=== PATIENT | female | born 1995 | race Caucasian/White ===

== ENCOUNTER 2016-03-12 14:33 | Emergency (ER) | payer OTHER, BC ==
[~2016-03-12] VITALS: Ht 170.2 cm; Wt 82.9 kg
[2016-03-12 14:37] VITALS: TEMP 36.9; Ht 170.2 cm; Wt 82.9 kg
[2016-03-12] MEDS ORDERED: SODIUM CHLORIDE 0.9% 1000ML 1,000 ML IV STA (15:39)
[2016-03-12] MEDS ORDERED: BCPILLS PO (16:02)
[2016-03-12] MEDS ORDERED: ONDANSETRON 8 MG/54 ML D5W IV STA (16:09)
[2016-03-12] MEDS ORDERED: ZIPR20CA PO (16:24)
[2016-03-12] MEDS ORDERED: APRE1TAB3 PO (16:24)
[2016-03-12] MEDS ORDERED: LISD40CA PO (16:24)
[2016-03-12] MEDS ORDERED: BUPR-79 PO (16:24)
[2016-03-12] MEDS ORDERED: LEVO1TAB19 PO (16:24)
[2016-03-12] MEDS ORDERED: AMT10 PO (16:24)
[2016-03-12] MEDS ORDERED: HYDR1CAP85 PO (16:24)
[2016-03-12] MEDS ORDERED: CETI10TA84 PO (16:24)
[2016-03-12] MEDS ORDERED: FLUT0.15 NAE (16:24)
[2016-03-12] MEDS ORDERED: ZNTT/150 PO (16:24)
[2016-03-12] MEDS ORDERED: CYCL10TA6 PO (16:24)
[2016-03-12] MEDS ORDERED: CLOB-85 TOP (16:24)
[2016-03-12] MEDS ORDERED: ESOM20CA PO (16:24)
[2016-03-12 16:33] LABS: BASO % 0.2 %; BASO ABS # 0.02 K/uL (0-0.2); COMPLETE YES; EOS % 0.1 %; HEMATOCRIT 40.7 % (37-47); IG% 0.1 %; LYMPH % 18.6 %; LYMPH ABS # 1.74 K/uL (1.2-3.4); MEAN CELL VOLUME 88.7 fL (80-100); MEAN CORPUSCULAR HEMOGLOBIN 30.9 pg (25-34); MEAN CORPUSCULAR HGB CONC 34.9 g/dl (32-36); MEAN PLATELET VOLUME 9.5 fL (7.4-10.4); MONO % 4.7 %; NEUT % 76.3 %; PLATELET COUNT 317 K/uL (130-400); RED BLOOD COUNT 4.59 M/uL (4.2-5.4); WHITE BLOOD COUNT 9.37 K/uL (4.8-10.8)
[2016-03-12 16:49] LABS: URINE APPEARANCE CLEAR (CLEAR); URINE BILIRUBIN NEG (NEG); URINE COLOR YELLOW; URINE EPITHELIAL CELL AUTO >30 /lpf (0-5); URINE NITRITE POS (NEG); URINE PH 6.5 (4.5-7.5); URINE SPECIFIC GRAVITY 1.026 (1.000-1.030); UROBILINOGEN NEG (NEG); ZZUR CULT IF INDIC CLEAN CATCH YES
[2016-03-12 16:53] LABS: MANUAL MICROSCOPIC REQUIRED? NO; REVIEW REQ? NO
[2016-03-12 17:00] LABS: BUN/CREATININE RATIO 12.8 (10-20); CALCIUM 9.4 mg/dl (8.5-10.1); CREATININE 0.81 mg/dl (0.60-1.20); POTASSIUM 3.8 mmol/L (3.5-5.1)
--- NOTE | 2016-03-12 17:06 | DIAGNOSTIC IMAGING REPORT ---
Right upper quadrant ultrasound GALLBLADDER-ABD LIMITED CLINICAL HISTORY: upper abd pain, vomiting. Pain TECHNIQUE: Ultrasound COMPARISON STUDY: None FINDINGS: Normal liver. Gallbladder is normal. Common bile duct 2 mm. Normal pancreas and right kidney IMPRESSION: Normal study Electronically signed by: Daryn Weber M.D. 03/12/2016 5:04 PM Dictated Date/Time: 03/12/2016 5:02 PM
[2016-03-12 17:13] LABS: BENZODIAZEPINE, URINE NEG (NEG); COCAINE,URINE NEG (NEG); PHENCYCLIDINE, URINE NEG (NEG)
[2016-03-12 19:43] VITALS: BP 119/73; PULSE 90; O2SAT 98
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
== END 2016-03-12 19:45 | disposition home or self-care (01) ==
LOC: C.EDB 14:36
DX: R11.2 Nausea with vomiting, unspecified (principal); R10.9 Unspecified abdominal pain; Z79.3 Long term (current) use of hormonal contraceptives; Z79.899 Other long term (current) drug therapy

== ENCOUNTER 2017-04-08 17:06 | Emergency (ER) | payer OTHER, BC ==
[~2017-04-08] VITALS: Ht 170.2 cm; Wt 80.5 kg
[~2017-04-08 17:06] MED LIST: AMT10 PO; APRE1TAB3 PO; BCPILLS PO; BUPR-79 PO; CETI10TA84 PO; CLOB-85 TOP; CYCL10TA6 PO; ESOM20CA PO; FLUT0.15 NAE; HYDR1CAP85 PO; LISD40CA PO; ONDA4TAB10 SL; RANI150T85 PO; ZIPR20CA PO
[2017-04-08 17:10] VITALS: TEMP 36.9; Ht 170.2 cm; Wt 80.5 kg
[2017-04-08] MEDS ORDERED: GI COCKTAIL PO STA (17:28)
[2017-04-08 17:37] LABS: BASO % 0.1 %; BASO ABS # 0.01 K/uL (0-0.2); EOS % 1.3 %; EOS ABS # 0.09 K/uL (0-0.5); HEMATOCRIT 40.1 % (37-47); HEMOGLOBIN 13.9 g/dL (12.0-16.0); IG# 0.01 K/uL (0.00-0.02); LYMPH % 34.3 %; LYMPH ABS # 2.32 K/uL (1.2-3.4); MEAN CELL VOLUME 87.9 fL (80-100); MEAN CORPUSCULAR HEMOGLOBIN 30.5 pg (25-34); MEAN CORPUSCULAR HGB CONC 34.7 g/dl (32-36); MEAN PLATELET VOLUME 9.2 fL (7.4-10.4); MONO % 6.8 %; MONO ABS # 0.46 K/uL (0.11-0.59); NEUT % 57.4 %; NEUT ABS # 3.87 K/uL (1.4-6.5); PLATELET COUNT 297 K/uL (130-400); RED CELL DISTRIBUTION WIDTH CV 12.4 % (11.5-14.5); WHITE BLOOD COUNT 6.76 K/uL (4.8-10.8)
[2017-04-08] MEDS ORDERED: ALUMINUM/MAGNESIUM SUSP 30 ML UDC ONE (17:39)
[2017-04-08] MEDS ORDERED: LIDOCAINE HCL 2% VISC SOLN 20 ML UDC ONE (17:39)
[2017-04-08 17:51] LABS: ALBUMIN 3.8 gm/dl (3.4-5.0); ALT/SGPT 27 U/L (12-78); AST/SGOT 12 U/L (15-37); BLOOD UREA NITROGEN 10 mg/dl (7-18); CALCIUM 8.9 mg/dl (8.5-10.1); CARBON DIOXIDE 26 mmol/L (21-32); CREATININE 0.92 mg/dl (0.60-1.20); GLUCOSE 101 mg/dl (70-99); LIPASE 166 U/L (73-393); POTASSIUM 3.5 mmol/L (3.5-5.1); SODIUM 138 mmol/L (136-145)
[2017-04-08 17:56] LABS: ALKALINE PHOSPHATASE 83 U/L (45-117); CKMB 0.7 ng/ml (0.5-3.6)
--- NOTE | 2017-04-08 17:56 | DIAGNOSTIC IMAGING REPORT ---
CHEST ONE VIEW PORTABLE CLINICAL HISTORY: 21 years-old Female presenting with CP. TECHNIQUE: Portable upright AP view of the chest was obtained. COMPARISON: None. FINDINGS: Cardiomediastinal silhouette normal. Lungs and pleural spaces clear. Osseous structures normal. Upper abdomen normal. IMPRESSION: 1. No acute cardiopulmonary disease. Electronically signed by: Ned Gomez M.D. 04/08/2017 5:55 PM Dictated Date/Time: 04/08/2017 5:55 PM
--- NOTE | 2017-04-08 19:00 | EMERGENCY ROOM VISIT NOTE ---
History First contact with patient: 17:18 Chief Complaint: CHEST PAIN Stated Complaint: TIGHT CHEST PAIN, TINGLING, TIGHTNESS IN NECK Nursing Triage Summary: at 1440 while on cough developed midsternal chest pain lasting mins then went away returned again and dissipated no pain on arrival to triage pt did have dizziness with pain hx costcocondroitis History of Present Illness The patient is a 21 year old female who presents to the Emergency Room with complaints of intermittent, pressure-like chest pain that occurred at approximately 1:30 PM this afternoon. The patient was sitting on the couch when it occurred. It was worse with movement. She denies any difficulty breathing. No pain with deep inspiration. This episode lasted approximately 20 minutes. A similar episode happened 2 hours later. She is currently symptom free. She denies any cough or fever. The patient reports a history of costochondritis. She denies any cardiac history. No recent long travel. She does not smoke. She does take control pills. Review of Systems 10 system review performed and negative unless noted in HPI or below Past Medical/Surgical History Medical Problems: (1) Impetigo Psoriatic arthritis Depression Bipolar disorder Family History No reported cardiac disease Social History Smoking Status: Never Smoker Marital Status: single Occupation Status: employed Current/Historical Medications Scheduled Amitriptyline HCl (Amitriptyline HCl), 10 MG PO HS Apremilast (Otezla), 30 MG PO HS Control Pills ( Control Pills), 1 TAB PO DAILY Bupropion (Wellbutrin Sr), 150 MG PO HS Cetirizine (Zyrtec), 10 MG PO HS Clobetasol Propionate Emulsion (Clobetasol Propionate), 1 SPRAY TOP UD Esomeprazole Magnesium (Nexium), 20 MG PO DAILY Fluticasone Propionate (Nasal) (Flonase Allergy Relief), 2 SPRAYS CECILLE DAILY Ondasetron Odt (Zofran Odt), 4 MG SL Q6H Ranitidine (Zantac), 150 MG PO HS Ziprasidone Hcl (Geodon), 20 MG PO QPM Scheduled PRN Cyclobenzaprine Hcl (Flexeril), 10 MG PO HS PRN for Muscle Spasms Hydroxyzine Pamoate (Vistaril), 25 MG PO HS PRN for Anxiety Lisdexamfetamine Dimesylate (Vyvanse), 40 MG PO DAILY PRN for ADHD Physical Exam Vital Signs Date Time Temp Pulse Resp B/P (MAP) Pulse Ox O2 Delivery O2 Flow Rate FiO2 04/08/17 19:28 78 18 98/59 100 Room Air 04/08/17 17:59 75 18 116/66 99 Room Air 04/08/17 17:31 80 04/08/17 17:10 36.9 87 20 134/87 96 Room Air Physical Exam VITALS: Vitals are noted on the nurse's note and reviewed by myself. Vital signs stable. GENERAL: 21-year-old female, in no acute distress, nondiaphoretic, well- developed well-nourished. SKIN: The skin was without rashes, erythema, edema, or bruising. HEAD: Normocephalic atraumatic. NECK: No JVD. HEART: Regular rate and rhythm without murmurs gallops or rubs. THORAX: Mild tenderness to palpation over the sternum LUNGS: Clear to auscultation bilaterally without wheezes, rales or rhonchi. No accessory muscle use. ABDOMEN: Positive bowel sounds x 4.Soft, nontender, without organomegaly. No guarding or rebound tenderness. MUSCULOSKELETAL: No muscle atrophy, erythema, or edema noted. Strength 5/5 throughout. NEURO: Patient was alert and oriented to person place and time. Normal sensation to touch. No focal neurological deficits. Medical Decision & Procedures ER Provider Diagnostic Interpretation: Chest x-ray IMPRESSION: 1. No acute cardiopulmonary disease. Electronically signed by: Ned Gomez M.D. 04/08/2017 5:55 PM Dictated Date/Time: 04/08/2017 5:55 PM The status of this report is Signed. Draft = Not yet reviewed or approved by Radiologist. Signed = Reviewed and approved by Radiologist. Laboratory Results 04/08/17 17:22 Red Blood Count 4.56, Mean Corpuscular Volume 87.9, Mean Corpuscular Hemoglobin 30.5, Mean Corpuscular Hemoglobin Concent 34.7, Mean Platelet Volume 9.2, Neutrophils (%) (Auto) 57.4, Lymphocytes (%) (Auto) 34.3, Monocytes (%) (Auto) 6.8, Eosinophils (%) (Auto) 1.3, Basophils (%) (Auto) 0.1, Neutrophils # (Auto) 3.87, Lymphocytes # (Auto) 2.32, Monocytes # (Auto) 0.46, Eosinophils # (Auto) 0.09, Basophils # (Auto) 0.01 04/08/17 17:22 Test 04/08/17 17:22 04/08/17 18:24 White Blood Count 6.76 K/uL (4.8-10.8) Red Blood Count 4.56 M/uL (4.2-5.4) Hemoglobin 13.9 g/dL (12.0-16.0) Hematocrit 40.1 % (37-47) Mean Corpuscular Volume 87.9 fL (80-100) Mean Corpuscular Hemoglobin 30.5 pg (25-34) Mean Corpuscular Hemoglobin Concent 34.7 g/dl (32-36) Platelet Count 297 K/uL (130-400) Mean Platelet Volume 9.2 fL (7.4-10.4) Neutrophils (%) (Auto) 57.4 % Lymphocytes (%) (Auto) 34.3 % Monocytes (%) (Auto) 6.8 % Eosinophils (%) (Auto) 1.3 % Basophils (%) (Auto) 0.1 % Neutrophils # (Auto) 3.87 K/uL (1.4-6.5) Lymphocytes # (Auto) 2.32 K/uL (1.2-3.4) Monocytes # (Auto) 0.46 K/uL (0.11-0.59) Eosinophils # (Auto) 0.09 K/uL (0-0.5) Basophils # (Auto) 0.01 K/uL (0-0.2) RDW Standard Deviation 40.0 fL (36.4-46.3) RDW Coefficient of Variation 12.4 % (11.5-14.5) Immature Granulocyte % (Auto) 0.1 % Immature Granulocyte # (Auto) 0.01 K/uL (0.00-0.02) Anion Gap 7.0 mmol/L (3-11) Est Creatinine Clear Calc Drug Dose 104.7 ml/min Estimated GFR () 102.4 Estimated GFR (Non- 88.4 BUN/Creatinine Ratio 10.6 (10-20) Calcium Level 8.9 mg/dl (8.5-10.1) Total Bilirubin 0.4 mg/dl (0.2-1) Aspartate Amino Transf (AST/SGOT) 12 U/L (15-37) Alanine Aminotransferase (ALT/SGPT) 27 U/L (12-78) Alkaline Phosphatase 83 U/L (45-117) Total Creatine Kinase 128 U/L (26-192) Creatine Kinase MB 0.7 ng/ml (0.5-3.6) Creatine Kinase MB Ratio 0.5 (0-3.0) Troponin I < 0.015 ng/ml (0-0.045) Total Protein 8.0 gm/dl (6.4-8.2) Albumin 3.8 gm/dl (3.4-5.0) Globulin 4.2 gm/dl (2.5-4.0) Albumin/Globulin Ratio 0.9 (0.9-2) Lipase 166 U/L (73-393) Urine Test NEG (NEG) Medications Administered Medications (Trade) Dose Ordered Sig/Anika Route Start Time Stop Time Status Last Admin Dose Admin Miscellaneous Medication (Gi Cocktail) 24 ml ONE STAT PO 04/08/17 17:28 04/08/17 17:31 DC 04/08/17 17:41 24 ML Al Hydroxide/Mg Hydroxide (Maalox Susp) 30 ml STK-MED ONCE .ROUTE 04/08/17 17:39 04/08/17 17:40 DC 04/08/17 17:42 30 ML Lidocaine HCl (Viscous Lidocaine 2% Soln) 20 ml STK-MED ONCE .ROUTE 04/08/17 17:39 04/08/17 17:40 DC 04/08/17 17:42 20 ML ECG Per My Interpretation Indication: chest pain Rate (beats per minute): 86 Rhythm: normal sinus ED Course Patient was seen and examined Vital signs including blood pressure were reviewed medications list was verified with patient Labs were obtained, and a saline lock was established An EKG was performed and reviewed by myself. The patient was put on a monitor. She was given a GI cocktail. Imaging was performed. The patient was reassessed. She remained pain-free. We discussed her results at length. She voiced understanding. A repeat EKG was performed and reviewed by myself. It was unchanged. I reviewed discharge instructions the patient. They voiced understanding and had no further questions. Medical Decision Differential diagnosis: Acute myocardial infarction, cardiac arrhythmia, anemia , thyroid abnormality, pneumothorax, pneumonia, bronchitis, pericarditis, electrolyte imbalance, costochondritis, pulmonary embolus The patient is a 21-year-old female that presents to the emergency department complaining of intermittent chest pain that started at 1:30 PM this afternoon. Pain is worse with movement. She denies any difficulty breathing. On exam, she had mild tenderness to palpation over the sternum. Her EKG shows normal sinus rhythm. Troponin is negative. A repeat EKG was performed. There was no change. The patient remained pain-free in the emergency department. She did not have any signs of pulmonary embolus such as difficulty breathing, shortness of breath, hypoxia or tachycardia. No recent long trips or leg pain. I believe this is likely musculoskeletal in nature. The patient was encouraged to follow up closely with her primary care physician. She also agrees to return to the emergency department with any worsening symptoms. This chart was completed in part utilizing [employer] Speech Voice Recognition software. Attempts were made to minimize the grammatical errors, random word insertions, pronoun errors and incomplete sentences. Any formal questions or concerns about the content, text or information contained within the body of this dictation should be directly addressed to the provider for clarification. Medication Reconcilliation Current Medication List: was personally reviewed by [place] Blood Pressure Screening Patient's blood pressure: Normal blood pressure Impression Primary Impression: Chest wall pain Departure Information Dispostion Home / Self-Care Condition GOOD Referrals Hieu Parisi M.D. (PCP) Patient Instructions My [facility] Additional Instructions You have been evaluated in the emergency department for chest pain. This is likely stemming from the rib cage. Please take ibuprofen 400 mg every 6 hours as needed for pain Please follow up as soon as possible with her primary care physician Do not hesitate to return to the emergency department with any new, worsening or concerning symptoms; especially, difficulty breathing, dizziness, worsening pain or nausea
[2017-04-08 19:28] VITALS: BP 98/59; PULSE 78; O2SAT 100
== END 2017-04-08 19:36 | disposition home or self-care (01) ==
LOC: C.EDB 17:08 → C.EDA 19:36
DX: R07.89 Other chest pain (principal); L40.50 Arthropathic psoriasis, unspecified; F31.9 Bipolar disorder, unspecified; Z79.3 Long term (current) use of hormonal contraceptives